=== PATIENT | female | born 2000 | race Caucasian/White ===

== ENCOUNTER 2023-03-02 02:16 | Emergency (ER) | payer BC, SELFPAY ==
[2023-03-02 02:26] VITALS: BP 96/52; PULSE 72; RESP 15; TEMP 36.5; O2SAT 100
--- NOTE | 2023-03-02 03:07 | ECG_ITS ---
Measurements Intervals [place] Rate: 72 P: 24 [place]: 134 QRS: 84 QRSD: 87 T: 49 QT: 375 QTc: 410 Interpretive Statements SINUS RHYTHM NORMAL ECG NO PREVIOUS ECG AVAILABLE FOR COMPARISON Electronically Signed On 03-02-2023 8:15:00 CDT by Edmundo Salter D.O.
[2023-03-02 03:28] LABS: Basophils Percent Auto 0.6 % (0.2-1.2); Eosinophils Percent Auto 0.8 % (0-4.4); Hematocrit 39.6 % (37.0-47.0); Hemoglobin 12.7 g/dL (12.0-15.0); Immature Granulocyte Absolute 0.01 K/mm3 (0.00-0.031); Immature Granulocyte Percent A 0.2 % (0-0.5); Lymphocytes Absolute Auto 2.12 K/mm3 (0.9-3.2); Lymphocytes Percent Auto 41.7 % (18.3-44.2); Mean Corpuscular HGB Conc 32.1 g/dl (32-36); Mean Corpuscular Hemoglobin 30.5 pg (26-34); Mean Corpuscular Volume 95.2 fl (80-100); Mean Platelet Volume 9.2 fl (7.4-10.4); Monocytes Absolute Auto 0.4 K/mm3 (0.1-0.6); Monocytes Percent Auto 7.5 % (2.6-8.5); Neutrophils Absolute Auto 2.5 K/mm3 (1.3-6.7); Neutrophils Percent Auto 49.2 % (45.5-73.1); Platelet Count Result 259 k/mm3 (150-375); Red Blood Count 4.16 M/mm3 (4.2-5.4); Red Cell Distribution Width 12.3 % (11.5-14.5); White Blood Count 5.1 K/mm3 (4.5-10.0)
[2023-03-02 03:41] LABS: Alanine Aminotransferase 20 U/L (6-35); Albumin Level 4.2 g/dL (3.5-5.1); Alkaline Phosphatase 55 U/L (38-126); Anion Gap 6 mmol/L (8-16); Aspartate Amino Transferase 28 U/L (14-36); Bilirubin,Total 0.7 mg/dL (0.2-1.3); Blood Urea Nitrogen 16 mg/dL (7-17); Calcium 9.3 mg/dL (8.4-10.2); Carbon Dioxide 29 mmol/L (22-30); Chloride 103 mmol/L (98-107); Estimated CRCL calculation 58 ml/min; Estimated Glomerular Filt Rate > 60; Glucose 110 mg/dL (65-110); Potassium 3.8 mmol/L (3.4-5.0); Sodium 138 mmol/L (137-145)
[2023-03-02 04:33] VITALS: BP 112/63; PULSE 57; RESP 15; O2SAT 99
[2023-03-02 05:33] VITALS: BP 109/61; PULSE 56; RESP 14; O2SAT 100
--- NOTE | 2023-03-02 07:43 | ED.SYNCOPE ---
HPI - Syncope General Chief Complaint: Syncope Stated Complaint: Syncope Time Seen by Provider: 03/02/23 06:54 History of Present Illness HPI narrative: Patient is a 23-year-old female who presents ER after having a syncopal episode. Occurred last night after taking an edible which she does not usually take. She suffered laceration to her chin and right eyebrow. She has no complaints of pain at this time. Denies fevers chills or sweats. No chest pain or chest pressure. Tetanus shot up-to-date. Related Data Allergies Allergy/AdvReac Type Severity Reaction Status Date / Time No Known Allergies Allergy Verified 03/02/23 05:30 Review of Systems Constitutional: Constitutional: Denies chills and Denies fever(s) ENT: Denies nasal congestion and Denies sore throat Cardiovascular: Cardiovascular: Denies chest pain, Denies rapid heart rate and Denies radiating jaw, neck or arm pain Respiratory: Respiratory: Denies cough and Denies dyspnea Integumentary/Breasts: Comments: Laceration to chin and right eyebrow Neurologic: Reports syncope, Denies headache(s), Denies focal weakness and Denies numbness PMFSH Past Medical History Medical History (Updated 03/02/23 @ 08:19 by Emile Chatman MD) Healthy female adult Surgical History Surgical History (Updated 03/02/23 @ 07:44 by Emile Chatman MD) No history of previous surgery Exam Narrative: GENERAL: Well-appearing, well-nourished, and in no acute distress. HEAD: Normocephalic, 2 cm laceration right supraorbital ridge. EYES: PERRLA and EOMI. ENT: Mucous membranes moist. 1.5 cm laceration to the mental region. CHEST: Clear to auscultation. No respiratory distress. HEART: Regular rate and rhythm. Normal peripheral pulses. ABDOMEN: Soft, nontender, nondistended. EXTREMITIES: Normal range of motion. No edema. SKIN: Warm, dry, no rash. NEURO: Alert and oriented x3. PSYCH: Normal mood and affect. Course Vital Signs Vital signs: Vital Signs Temperature 97.7 F 03/02/23 02:26 Pulse Rate 72 03/02/23 02:26 Respiratory Rate 15 03/02/23 02:26 Blood Pressure 96/52 L 03/02/23 02:26 Pulse Oximetry 100 03/02/23 02:26 Oxygen Delivery Room Air 03/02/23 02:26 Temperature 97.7 F 03/02/23 02:26 Pulse Rate 56 L 03/02/23 05:33 Respiratory Rate 14 03/02/23 05:33 Blood Pressure 109/61 03/02/23 05:33 Pulse Oximetry 100 03/02/23 05:33 Oxygen Delivery Room Air 03/02/23 02:26 Procedures Laceration Laceration 1: Date: 03/02/23 Time: 08:00 Site: other (right eyebrow) Size (cm): 2 Description: linear Depth: simple, single layer Local Anesthetic: lidocaine 1% and with epi Amount of anesthesia used (mL): 2 Pre-repair: irrigated extensively and deep structures intact ====== Skin Level ====== Skin layer closed with: nylon Size (cm): 5-0 Number of sutures: 4 Technique: simple, interrupted ====== Subcutaneous Layer ====== ====== Muscle Layer ====== ====== Tendon Layer ====== Laceration 2: Date: 03/02/23 Time: 08:05 Site: other (chin) Size (cm): 1.5 Description: linear Depth: simple, single layer Local Anesthetic: lidocaine 1% and with epi Amount of anesthesia used (mL): 2 Pre-repair: irrigated and deep structures intact ====== Skin Level ====== Skin layer closed with: nylon Size (cm): 5-0 Number of sutures: 3 ====== Subcutaneous Layer ====== ====== Muscle Layer ====== ====== Tendon Layer ====== MDM - Syncope Lab Data 03/02/23 03:19 03/02/23 03:19 Labs: Lab Results 03/02/23 Range/Units 03:19 WBC 5.1 (4.5-10.0) K/mm3 RBC 4.16 L (4.2-5.4) M/mm3 Hgb 12.7 (12.0-15.0) g/dL Hct 39.6 (37.0-47.0) % MCV 95.2 (80-100) fl MCH 30.5 (26-34) pg MCHC 32.1 (3
== END 2023-03-02 09:19 | disposition home or self-care (01) ==
PROVIDERS: Emergency Medicine; Emergency Provider Emergency Medicine
DX: S01.111A Laceration without foreign body of right eyelid and periocular area, initial encounter (principal); S01.81XA Laceration without foreign body of other part of head, initial encounter; R55 Syncope and collapse; W19.XXXA Unspecified fall, initial encounter
CPT/HCPCS: 12013; 36415; 80053; 81025; 85025; 93005; 99283

== ENCOUNTER 2023-03-17 16:56 | Emergency (ER) | payer BC, SELFPAY ==
--- NOTE | ~2023-03-17 | US_ITS ---
US pelvic complete w TV DATE: 03/17/2023 19:08 INDICATION: Mid abdominal pain. Negative test. History of left ectopic regnancy in 2020; st at[facility] post left salpingo-oophorectomy TECHNIQUE: Transabdominal and transvaginal views COMPARISON: None FINDINGS: The uterus measures approximately 7 cm height, up to 4 cm AP dimension. There is an IUD wit hin expected position in the endometrial cavity. No abnormal endometrial thickening, fluid collection or gestational sac is identified. There is interval including corpus luteum cyst of the right ovary measuring 2.1 x 2.3 x 2.4 mm. The left ovary is not visualized. No significant abnormal pelvic fluid collection is detected. IMPRESSION: Involuting 2.4 cm corpus luteum cyst right ovary IUD in expected position within the uterus Reviewed, dictated and finalized at [facility]. Reviewed, dictated and finalized at [facility].
[2023-03-17 17:29] VITALS: BP 128/75; PULSE 74; RESP 16; TEMP 36.6; O2SAT 100
[2023-03-17 18:03] LABS: Basophils Percent Auto 0.3 % (0.2-1.2); Eosinophils Percent Auto 0.1 % (0-4.4); Hematocrit 40.5 % (37.0-47.0); Hemoglobin 13.2 g/dL (12.0-15.0); Immature Granulocyte Absolute 0.05 K/mm3 (0.00-0.031); Immature Granulocyte Percent A 0.4 % (0-0.5); Lymphocytes Absolute Auto 1.51 K/mm3 (0.9-3.2); Lymphocytes Percent Auto 12.1 % (18.3-44.2); Mean Corpuscular HGB Conc 32.6 g/dl (32-36); Mean Corpuscular Hemoglobin 30.9 pg (26-34); Mean Corpuscular Volume 94.8 fl (80-100); Mean Platelet Volume 9.5 fl (7.4-10.4); Monocytes Absolute Auto 0.7 K/mm3 (0.1-0.6); Monocytes Percent Auto 5.9 % (2.6-8.5); Neutrophils Absolute Auto 10.2 K/mm3 (1.3-6.7); Neutrophils Percent Auto 81.2 % (45.5-73.1); Platelet Count Result 224 k/mm3 (150-375); Red Blood Count 4.27 M/mm3 (4.2-5.4); Red Cell Distribution Width 12.3 % (11.5-14.5); White Blood Count 12.5 K/mm3 (4.5-10.0)
[2023-03-17 18:06] LABS: Appearance Urine Cloudy (Clear); Bacteria Urine 1+ /hpf; Bilirubin Urine Negative (Negative); Blood Urine Negative (Negative); Color Urine Yellow (Yellow); Glucose Urine UA Negative (Negative); Ketones Urine Trace mg/dL (Negative); Leukocyte Esterase Ur 2+ LEU/UL (Negative); Nitrate Urine Negative (Negative); Non Pathogenic Casts 0-2; Protein Urine Negative (Negative); RBC Urine 0-2 /hpf (0-2); Specific Grav Ur 1.019 (1.001-1.035); Squamous Epithelial Cell Urine Occasional /hpf (Few); WBC Urine 51-100 /hpf
[2023-03-17 18:12] LABS: Add Urine Microscopic? YES
[2023-03-17 18:13] LABS: Alanine Aminotransferase 19 U/L (6-35); Albumin Level 4.6 g/dL (3.5-5.1); Alkaline Phosphatase 54 U/L (38-126); Anion Gap 8 mmol/L (8-16); Aspartate Amino Transferase 28 U/L (14-36); Bilirubin,Total 1.3 mg/dL (0.2-1.3); Blood Urea Nitrogen 9 mg/dL (7-17); Calcium 9.4 mg/dL (8.4-10.2); Carbon Dioxide 26 mmol/L (22-30); Chloride 102 mmol/L (98-107); Estimated CRCL calculation 71 ml/min; Estimated Glomerular Filt Rate > 60; Glucose 92 mg/dL (65-110); Lipase 52 U/L (23-300); Potassium 3.7 mmol/L (3.4-5.0); Sodium 136 mmol/L (137-145)
--- NOTE | 2023-03-17 21:39 | ED.ABDPAIN ---
HPI - Abdominal Pain General Chief Complaint: Abdominal Pain Stated Complaint: abd pain Time Seen by Provider: 03/17/23 21:36 History of Present Illness HPI narrative: Patient presents to the emergency department for severe left lower abdominal pain. She had a left ovarian ectopic so does not have an ovary on the left side. Pain started earlier today. Has been very uncomfortable. Pain worse with relaxation of her muscles. Denies all other review of systems. Related Data Allergies Allergy/AdvReac Type Severity Reaction Status Date / Time No Known Allergies Allergy Verified 03/17/23 16:57 Review of Systems Review of Systems: Review of systems negative except for what is documented in the HPI PMFSH Past Medical History Medical History (Updated 03/17/23 @ 21:41 by Chasidy Riley MD) Healthy female adult Surgical History Surgical History (Updated 03/02/23 @ 07:44 by Emile Chatman MD) No history of previous surgery Exam Narrative: GENERAL: Well-appearing, well-nourished, and in no acute distress. HEAD: Normocephalic, atraumatic. EYES: PERRLA and EOMI. ENT: Nares clear, no rhinorrhea or epistaxis. Mucous membranes moist. NECK: Supple. CHEST: Clear to auscultation. No respiratory distress. HEART: Regular rate and rhythm. ABDOMEN: Soft, nondistended. Left lower quadrant tenderness EXTREMITIES: Normal range of motion. No edema. SKIN: Warm, dry, no rash. NEURO: No focal deficits. Alert and oriented x3. PSYCH: Normal mood and affect. Course Course Emergency Course: Differential diagnosis includes but not limited to ovarian cyst, colitis, diverticulitis, urinary tract infection Pelvic ultrasound shows 2.4 cm ovarian cyst on the right ovary without pelvic free fluid. Also she has a urinary tract infection Vital Signs Vital signs: Vital Signs Temperature 36.6 C 03/17/23 17:29 Pulse Rate 74 03/17/23 17:29 Respiratory Rate 16 03/17/23 17:29 Blood Pressure 128/75 03/17/23 17:29 Pulse Oximetry 100 03/17/23 17:29 Oxygen Delivery Room Air 03/17/23 17:29 Temperature 36.6 C 03/17/23 17:29 Pulse Rate 75 03/17/23 21:56 Respiratory Rate 16 03/17/23 21:56 Blood Pressure 110/65 03/17/23 21:56 Pulse Oximetry 99 03/17/23 21:56 Oxygen Delivery Room Air 03/17/23 17:29 MDM - Abdominal Pain Lab Data 03/17/23 17:51 03/17/23 17:51 Labs: Lab Results 03/17/23 03/17/23 Range/Units 17:46 17:51 WBC 12.5 H (4.5-10.0) K/mm3 RBC 4.27 (4.2-5.4) M/mm3 Hgb 13.2 (12.0-15.0) g/dL Hct 40.5 (37.0-47.0) % MCV 94.8 (80-100) fl MCH 30.9 (26-34) pg MCHC 32.6 (32-36) g/dl RDW 12.3 (11.5-14.5) % Plt Count 224 (150-375) k/mm3 MPV 9.5 (7.4-10.4) fl Immature Gran % (Auto) 0.4 (0-0.5) % Neut % (Auto) 81.2 H (45.5-73.1) % Lymph % (Auto) 12.1 L (18.3-44.2) % [place] % (Auto) 5.9 (2.6-8.5) % Eos % (Auto) 0.1 (0-4.4) % Baso % (Auto) 0.3 (0.2-1.2) % Lymph # (Auto) 1.51 (0.9-3.2) K/mm3 [place] # (Auto) 0.7 H (0.1-0.6) K/mm3 Eos # (Auto) 0.0 (0-0.3) K/mm3 Baso # (Auto) 0.0 (0.0-0.1) K/mm3 Abs Immat Gran (auto) 0.05 H (0.00-0.031) K/mm3 Absolute Neuts (auto) 10.2 H (1.3-6.7) K/mm3 Absolute Nucleated RBC 0.0 (0.0-0.012) K/mm3 Nucleated RBC % 0.0 (0.0-0.2) % Sodium 136 L (137-145) mmol/L Potassium 3.7 (3.4-5.0) mmol/L Chloride 102 (98-107) mmol/L Carbon Dioxide 26 (22-30) mmol/L Anion Gap 8 (8-16) mmol/L BUN 9 D (7-17) mg/dL Creatinine 0.90 (0.7-1.0) mg/dL Estim Creat Clear Calc 71 ml/min Estimated GFR > 60 (59 - ) Glucose 92 (65-110) mg/dL Calcium 9.4 (8.4-10.2) mg/dL Total Bilirubin 1.3 (0.2-1.3) mg/dL AST 28 (14-36) U/L ALT 19 (6-35) U/L Alkaline Phosphatase 54 (38-126) U/L Total Protein 8.0 (6.3-8.2) g/dL Albumin 4.6 (3.5-5.1) g/dL Lipase 52 (23-300) U/L Urine Co
[2023-03-17 21:56] VITALS: BP 110/65; PULSE 75; RESP 16; O2SAT 99
[2023-03-17] MEDS: HYDROcodone/acetaminophen (*CRX) 5-325 MG TABLET 1 TAB PO (21:56)
[2023-03-17] MEDS: ONDANSETRON HCL ODT 4 MG TABLET PO (21:57)
[2023-03-17] MEDS: IBUPROFEN 600 MG TABLET PO (21:57)
[2023-03-17 22:58] VITALS: BP 112/64; PULSE 69; RESP 16; O2SAT 99
== END 2023-03-17 23:00 | disposition home or self-care (01) ==
PROVIDERS: Emergency Medicine; Emergency Provider Emergency Medicine
DX: N83.201 Unspecified ovarian cyst, right side (principal); N39.0 Urinary tract infection, site not specified
CPT/HCPCS: 36415; 76830; 76856; 80053; 81001; 81025; 83690; 85025; 87086; 87088; 87147; 96365; 99284; A9270; J0696